=== PATIENT | female | born 1950 | race Caucasian/White ===

== ENCOUNTER → 2024-04-16 14:14 | Outpatient (REF) | payer OTHER, SELFPAY | LOC: RAD 14:14 | PROVIDERS: ATTENDING PHYSICIAN Podiatrist Primary Podiatric Medicine; FAMILY PHYSICIAN Physician Assistant Medical | DX: M79.675 Pain in left toe(s) (principal) | CPT/HCPCS: 73630 ==

== ENCOUNTER → 2025-02-02 10:03 | Outpatient (REF) | payer OTHER, SELFPAY | LOC: RAD 10:03 | PROVIDERS: ATTENDING PHYSICIAN Physician Assistant Medical | DX: E78.2 Mixed hyperlipidemia (principal); M54.50 Low back pain, unspecified | CPT/HCPCS: 72110; 73523 ==

== ENCOUNTER → 2025-09-13 13:48 | Outpatient (REF) | payer OTHER, SELFPAY | LOC: HWWDC 13:48 | PROVIDERS: ATTENDING PHYSICIAN Obstetrics & Gynecology Gynecology; FAMILY PHYSICIAN Physician Assistant Medical | DX: Z12.31 Encounter for screening mammogram for malignant neoplasm of breast (principal) | CPT/HCPCS: 77063; 77067 ==